=== PATIENT | female | born 1985 | race Caucasian/White ===

== ENCOUNTER 2017-05-27 16:22 | Emergency (ER) | payer BC ==
[2017-05-27] MEDS: KETOROLAC 30 MG INJ IM (20:05)
[2017-05-27] MEDS: HYDROCODONE/APAP (10/325) TAB PO (20:05)
== END 2017-05-27 20:40 | disposition home or self-care (01) ==
LOC: FTE 16:22
DX: M54.5 Low back pain (principal); F17.210 Nicotine dependence, cigarettes, uncomplicated
CPT/HCPCS: 96372; 99284-25; J1885